=== PATIENT | male | born 1965 | race Caucasian/White ===

== ENCOUNTER 2018-08-17 14:41 | Emergency (ER) | payer OTHER ==
[2018-08-17] MEDS ORDERED: RABIES IMMUNE GLOBULIN/PF 300 UNIT/ML VIAL IF ONE ×2 (14:58→15:30)
[2018-08-17] MEDS ORDERED: RABIES VACC, HUMAN DIPLOID/PF 2.5 UNIT VIAL (RABAVERT) IM ONE ×2 (14:58→15:51)
--- NOTE | 2018-08-17 15:03 | EDPHY ---
H & P Time Seen by Provider: 08/17/18 14:49 HPI/ROS: CHIEF COMPLAINT: Here for rabies post exposure prophylaxis HISTORY OF PRESENT ILLNESS: 53-year-old male was seen by his PCP earlier today and referred to the ER. 3 days ago the patient was bitten by a stray dog on the upper lip. He describes this as a dog that was with a possibly homeless person. PHYSICAL EXAM (Prior to examination, patient consented to physical exam, hands were washed and my usual and customary physical exam procedures followed) 1) GENERAL: Well-developed, well-nourished, alert and oriented. Appears to be in no acute distress. 2) HEAD: Normocephalic 3) HEENT: sclera anicteric 4) LUNGS: Breathing comfortably. 5) SKIN: Upper lip, 2 x 1 cm lesions across the vermilion border. There are no signs of infection. Smoking Status: Never smoked Constitutional: Initial Vital Signs Temperature (C) 37 C 08/17/18 14:44 Heart Rate 71 08/17/18 14:44 Respiratory Rate 14 08/17/18 14:44 Blood Pressure 134/91 H 08/17/18 14:44 O2 Sat (%) 94 08/17/18 14:44 O2 Delivery Mode Room Air Allergies/Adverse Reactions: No Known Allergies Allergy (Verified 08/17/18 15:00) Home Medications: Medication Instructions Recorded Ambien 11/14/15 Losartan Potassium 08/17/18 MDM/Departure - MDM Medications Given: Discontinued Medications Rabies Immune Globulin (Hyperrab 300 Unit/Ml) 2,000 unit IF .ONCE ONE Stop: 08/17/18 15:31 Last Admin: 08/17/18 15:41 Dose: 2,000 unit Rabies Vaccine Human Diploid Cell (Rabavert) 2.5 unit IM .ONCE ONE Stop: 08/17/18 14:59 Last Admin: 08/17/18 15:36 Dose: 2.5 unit ED Course/Re-evaluation: Patient has been given rabies immunoglobulin 20 units per kilos in the ER as well as rabies vaccine. He has been given rabies vaccine schedule and I was informed by his primary care provider earlier today via telephone that she could provide the further vaccinations in the office. - Depart Disposition: Home, Routine, Self-Care Clinical Impression: Dog bite of skin of lip Qualifiers: Encounter type: initial encounter Qualified Code(s): S01.551A - Open bite of lip, initial encounter Condition: Good Instructions: Animal Bite (ED), Rabies (ED) Additional Instructions: this is day 0 (08/17) Your vaccine schedule is as follows: Day 3 08/20 Day 7 08/24 Day 14 08/30 Your primary care provider mentioned that she could give you these vaccines in the clinic. Referrals: Cathleen Cox MD [Primary Care Provider] - 08/20/18
[2018-08-17 16:04] VITALS: BP 143/100
== END 2018-08-17 16:04 | disposition home or self-care (01) ==
DX: S01.551A Open bite of lip, initial encounter (principal); W54.0XXA Bitten by dog, initial encounter; Z23 Encounter for immunization